=== PATIENT | female | born 1975 | race African-American/Black ===

== ENCOUNTER 2019-04-08 07:24 | Emergency (ER) | payer MEDICAID ==
[~2019-04-08] VITALS: Ht 175.3 cm; Wt 76.2 kg
[2019-04-08 07:24] VITALS: BP_SYST 139
--- NOTE | 2019-04-08 07:24 | NUR ---
Patient to ER bed 5 to gown for evaluation. Side rails up. Report given to CORINE Peters.
--- NOTE | 2019-04-08 07:40 | NUR ---
ER Dr. Gallegos at bedside examining patient.
[2019-04-08] MEDS ORDERED: NACL 0.9% 1,000 ML IV ONE (07:42)
[2019-04-08] MEDS ORDERED: MORPHINE 4 MG/ML INJ. SYRINGE IVP ONE (07:45)
--- NOTE | 2019-04-08 07:58 | NUR ---
Patient arrived via S ambulance, [id number], and loudly moaning and in distress. Patient c/c of abdominal pain, generalized, worse in the lower abdomen. Patient describes pain as cramping and spasming. Difficulty urinating and having bowel movements. No nausea, vomiting, diarrhea, fever/chills associated. Patient states she had her hysterectomy in November. She was cleared for intercourse in February, she states her and her boyfriend had sex last week for the first time since surgery. No pain associated during, but afterward she has had the cramping. She has been medicating with advil and heating pad, minimal relief. No bleeding vaginally and stool has not contained blood. Patient denies chest pain. Will continue to follow up and monitor.
[2019-04-08] MEDS ORDERED: IOHEXOL 0 ML IV ONE (08:24)
--- NOTE | 2019-04-08 08:29 | NUR ---
Patient taken to CT scan via gurney.
--- NOTE | 2019-04-08 08:42 | NUR ---
Patient arrived from CT scan via gurney. Patient in stable condition. Will continue to follow up.
[2019-04-08] MEDS ORDERED: fentaNYL CITRATE/PF 100 MCG/2 ML AMP IVP ONE ×2 (08:45→12:30)
--- NOTE | 2019-04-08 09:24 | NUR ---
Blood redrawn related to hemolyzing. Drawn by lab informed of delayed results.
[2019-04-08 09:29] LABS: BILIRUBIN,URINE NEGATIVE (NEGATIVE); CLARITY/URINE SL HAZY (CLEAR); COLOR,URINE YELLOW (YELLOW); GLUCOSE,URINE NEGATIVE (NEGATIVE); KETONES,URINE TRACE (NEGATIVE); LEUKOCYTE ESTERASE ,URINE 2+ (NEGATIVE); NITRITE, URINE NEGATIVE (NEGATIVE); PROTEIN URINE TRACE (NEGATIVE); UROBILINOGEN,URINE 0.2 (0.2-1.0)
[2019-04-08 09:31] LABS: BLOOD, URINE TRACE (NEGATIVE)
[2019-04-08 10:00] LABS: ALBUMIN 2.8 g/dL (3.4-4.8); CREATININE 0.62 mg/dL (0.55-1.30); POTASSIUM 3.7 mmol/L (3.5-5.1); TOTAL BILIRUBIN 0.3 mg/dL (0.0-1.0)
--- NOTE | 2019-04-08 10:09 | NUR ---
Ultrasound at bedside for exam. Family remains at bedside. Will continue to follow up and monitor.
[2019-04-08 10:11] LABS: BACTERIA,URINE FEW /HPF (None Seen); WBC,URINE 20-50 /HPF (0-3)
--- NOTE | 2019-04-08 10:11 | NUR ---
Blood hemolyzed, redraw performed by lab. Patient tolerated well.
[2019-04-08] MEDS ORDERED: KETOROLAC TROMETHAMINE 30 MG VIAL IVP ONE (10:15)
[2019-04-08 10:24] LABS: BASOPHILS # (AUTO) 0.1 K/uL (0.0-0.2); BASOPHILS % (AUTO) 0.5 % (0.0-2.0); EOSINOPHILS # (AUTO) 0.1 K/uL (0.0-0.4); HEMATOCRIT 30.4 % (36-48); HEMOGLOBIN 9.3 g/dL (12.0-16.0); LYMPHOCYTES # (AUTO) 1.4 K/uL (1.0-5.5); LYMPHOCYTES % (AUTO) 9.2 % (20.5-51.5); MEAN CORPUSCULAR HEMOGLOBIN 21 pg (27-31); MEAN CORPUSCULAR HGB CONC 31 % (32-36); MEAN CORPUSCULAR VOLUME 68 fL (79.0-98.0); MONOCYTES # (AUTO) 0.9 K/uL (0.0-1.0); MONOCYTES % (AUTO) 5.8 % (1.7-9.3); NEUTROPHILS # (AUTO) 12.8 K/uL (1.8-7.7); NEUTROPHILS % (AUTO) 83.5 % (40.0-70.0); PLATELET COUNT (AUTO) 570 K/uL (130-430); RED BLOOD CELL COUNT(AUTO) 4.48 MIL/uL (4.2-6.2); RED CELL DISTRIBUTION WIDTH 25.9 % (9.0-15.0); WHITE BLOOD COUNT (AUTO) 15.3 K/uL (4.8-10.8)
--- NOTE | 2019-04-08 10:40 | NUR ---
Patient ultrasound completed, and patient placed in position of comfort. Pain is tolerable at this time. Will follow up regarding results.
--- NOTE | 2019-04-08 10:55 | NUR ---
retail merchandiser technician arrived back to room, states there will need to be more images transvaginally. Will continue to follow up.
--- NOTE | 2019-04-08 12:03 | NUR ---
Patients aunt at bedside informed staff pain is increasing and patient requesting more pain medications, MD informed.
--- NOTE | 2019-04-08 12:32 | NUR ---
Medication administered. Pt tolerated well. No adverse reactions noted.
[2019-04-08 14:07] VITALS: BP_SYST 104
--- NOTE | 2019-04-08 14:07 | NUR ---
Patient given written and verbal discharge instructions and verbalizes understanding. ER MD discussed with patient the results and treatment provided. Patient in stable condition. ID arm band removed. IV catheter removed intact and dressing applied, no active bleeding. Rx of Pyridium, Cipro, and Tylenol with codiene given. Patient educated on pain management and to follow up with PMD. Pain Scale 3/10. Opportunity for questions provided and answered. Medication side effect fact sheet provided.
[2019-04-10 04:09] LABS: CHLAMYDIA TRACHOMATIS NAA Negative (Negative); NEISSERIA GONORRHOEAE NAA Negative (Negative)
== END 2019-04-08 14:07 | disposition home or self-care (01) ==
LOC: SED 07:24
DX: N39.0 Urinary tract infection, site not specified (principal); Z90.710 Acquired absence of both cervix and uterus; Z88.0 Allergy status to penicillin; Z91.041 Radiographic dye allergy status
CPT/HCPCS: 36415; 74176; 76856; 80053; 81000; 83605; 83690; 85025; 87040; 87086; 87210; 87491; 87591; 96374; 96375; 96376; 99284; J2270; J3010; J7030; Q9967